=== PATIENT | male | born 1960 | race Caucasian/White ===

== ENCOUNTER 2017-10-24 16:12 | Inpatient (IN) ==
[2017-10-24 16:45] LABS: Basophils # 0.1 K/mcL (0.0-0.2); Basophils % 1.6 %; Eosinophils # 0.1 K/mcL (0.0-0.6); Eosinophils % 2.4 %; Hemoglobin 13.4 g/dL (12.9-16.9); Immature Granulocytes % 0.4 % (0-4); Lymphocytes # 0.7 K/mcL (0.6-4.6); Lymphocytes % 14.1 %; Mean Corpuscular HGB Conc 32.7 g/dL (31.6-35.5); Mean Corpuscular Volume 82.7 fL (83.0-100.0); Mean Platelet Volume 10.2 fL (9.4-12.4); Monocytes # 0.6 K/mcL (0.0-1.3); Monocytes % 11.3 %; Neutrophils # 3.6 K/mcL (1.6-8.9); Nucleated Red Blood Cells 0.4 /100 WBC (0); Platelet Count 219 K/mcL (140-400); Red Blood Count 4.96 M/mcL (4.19-5.50); Red Cell Distribution Width 14.5 % (11.5-14.5); Segmented Neutrophils % 70.2 %
[2017-10-24] MEDS ORDERED: 0.9 % Sodium Chloride 500 ML IVC ONE (17:01)
[2017-10-24 17:02] LABS: Alanine Aminotransferase 12 Units/L (7-52); Albumin 3.4 g/dL (3.5-5.7); Albumin/Globulin Ratio 1.1 (1.1-2.2); Alkaline Phosphatase 62 Units/L (34-104); Aspartate Amino Transferase 12 Units/L (13-39); BUN/Creatinine Ratio 14 (6-26); Bilirubin,Direct 0.2 mg/dL (0.0-0.2); Bilirubin,Indirect 1.1 mg/dL (0.0-1.2); Bilirubin,Total 1.3 mg/dL (0.3-1.0); Blood Urea Nitrogen 13 mg/dL (6-20); Calcium 8.2 mg/dL (8.6-10.3); Carbon Dioxide 23 mEq/L (23-29); Chloride 103 mEq/L (98-107); Glucose 151 mg/dL (70-105); Osmolality,Calculated 279 (280-300); Sodium 133 mEq/L (136-145); Total Protein 6.4 g/dL (6.4-8.9); eGFR For African Americans > 60 (> 60); eGFR For Non-African Americans > 60 (> 60)
[2017-10-24] MEDS ORDERED: Piperacillin/Tazobactam 3.375 GM in 0.9 % Sodium Chloride Mini Bag 100 ML IVPB ONE (17:04)
[2017-10-24 17:23] LABS: Bilirubin,Urine Small (Negative); Blood,Urine Small (Negative); Clarity,Urine Turbid (Clear); Color,Urine Dark Yellow (Yellow); Glucose,Urine (UA) Normal (Normal); Ketones,Urine Trace mg/dL (Negative); Leukocyte Esterase,Urine Trace (Negative); Nitrite,Urine Negative (Negative); PH,Urine 5.5 pH Units (5.0-8.0); Protein,Urine 100 mg/dL (Neg-Trace); Specific Gravity,Urine 1.029 (1.010-1.025); Urobilinogen,Urine Normal (Normal)
[2017-10-24 17:37] LABS: Hyaline Casts,Urine Few per lpf (None-Few)
[2017-10-24 17:38] LABS: Squamous Epithelial Cell,Urine Few per lpf (None-Few); WBC,Urine 0-3 per hpf (0-3)
[2017-10-24 17:39] LABS: Bacteria,Urine Few per hpf (None-Few)
[2017-10-24] MEDS: 0.9 % Sodium Chloride 1,000 ML IVC SCH ×3 (17:42→22:42)
--- NOTE | 2017-10-24 17:44 | Emergency Department Note ---
Disposition Clinical Impression: UTI (urinary tract infection) Qualifiers: Urinary tract infection type: catheter-associated UTI Indwelling urinary catheter type: indwelling urethral catheter Encounter type: initial encounter Qualified Code(s): T83.511A - Infection and inflammatory reaction due to indwelling urethral catheter, initial encounter Hypotension Qualifiers: Hypotension type: unspecified hypotension type Qualified Code(s): I95.9 - Hypotension, unspecified Disposition: Admitted As Inpatient Condition: Fair Time of Disposition: 21:02 Dizziness HPI - General Chief Complaint: ED Syncope Stated Complaint: near sycope,vomiting Time Seen by Provider: 10/24/17 16:44 Source: patient, family Limitations: no limitations - History of Present Illness HPI Narrative: Torey Guadalupe is a 57 year old male with history of CAD and CVA presenting with lightheadedness and low blood pressure (systolic 90s at home) for two hours , and nausea and dry heaving for 1 day. Patient was admitted to [facility] roughly 2 weeks ago and underwent cholecystectomy. This was followed by a week of physical therapy. He was discharged yesterday. His brother notes that the patient has continued to have poor oral intake. He measured his blood pressure earlier this morning and found it to be in the 160s/80s. Later in the day, he recheck it and found it to be in the 90s systolic with tachycardia into the 130s and the patient was experiencing lightheadedness. He does admit to some mild abdominal pain. He denies fever, chills, chest pain, diaphoresis, and changes in mental status. - Related Data Allergies Allergy/AdvReac Type Severity Reaction Status Date / Time naproxen [From Aleve] Allergy Swelling Verified 10/24/17 16:18 of Lip/Tongue/Throat Constitutional: Reports: weakness. Denies: fever, chills Cardiovascular: Denies: chest pain Respiratory: Reports: dyspnea Gastrointestinal: Reports: abdominal pain, nausea Genitourinary: Reports: other (agarwal catheter in place) Neurological: Denies: confusion Past Medical History - Past Medical History Medical history: Reports: atrial fibrillation, CVA, diabetes, GERD, hyperlipidemia, hypertension Psychiatric history: Reports: no psych history - Social History Smoking Status: Never smoker Smokeless Tobacco Status: No Alcohol use: Reports: none Drug use: Reports: none Physical Exam - General Limitations: no limitations General appearance: alert, in no apparent distress, obese - Head Head exam: atraumatic, normocephalic, normal inspection - Respiratory Respiratory exam: Present: normal lung sounds bilaterally. Absent: respiratory distress, accessory muscle use - Cardiovascular Cardiovascular exam: Present: tachycardia, normal heart sounds, +S1, +S2 - Abdominal Exam Abdominal exam: Present: soft, Non-Tender, incision (healing lap tierra). Absent : guarding, rebound - Neurological Exam Neurological exam: Present: alert, oriented X3 - Psychiatric Psychiatric exam: Present: normal affect, normal mood - Skin Skin exam: Present: warm, dry Course Course Narrative: Patient presented with low blood pressure, pre-syncope, poor oral intake, shortness of breath, and abdominal pain one day after being discharged from [facility] following a cholecystectomy. Patient tachycardic and hypotensive. CT Abd /Pelv, CXR, UA, blood cultures, lactate, lipase, CMP, and CBC ordered. Patient given one dose of vancomycin and zosyn. Patient initially improved with fluid resuscitation at 30 mls/kg with resolution of tachycardia and improvement of hypotension. Lactate, CBC, CMP, and lipase within normal limits aside from mild elevation of total bili to 1.3. CT Abd/Pelv revealed mild stranding around the bladder, possibly indicating cystitis, as well as a 3 mm nodule in the right lung base and a hypoattenuating lesion in the liver. UA was significant for turbidity and trace leukocyte esterase. Plan was initially for discharge with oral antibiotics, but when patient started sitting up, he developed worsening lightheadedness, a drop in pressure of about 10 points to below 100 systolic, and decrease in O2 saturation to below 80. This improved quickly once he returned to the supine position. This case was discussed with the admitting hospitalist. Plan is for admission for further evaluation. Vital Signs Temperature 97.9 F 10/24/17 16:14 Pulse Rate 99 10/24/17 16:14 Respiratory Rate 18 10/24/17 16:14 Blood Pressure 92/61 10/24/17 16:14 O2 Sat by Pulse Oximetry 98 10/24/17 16:14 Temperature 97.9 F 10/24/17 16:14 Pulse Rate 97 10/24/17 23:13 Respiratory Rate 18 10/24/17 23:13 Blood Pressure 97/56 10/24/17 23:13 O2 Sat by Pulse Oximetry 96 10/24/17 23:13 Oxygen Delivery Oxygen Delivery Room Air Dizziness - Medical Records Medical records reviewed: Yes I reviewed the patient's medical records. - Lab Data Lab results reviewed: Yes I reviewed the patient's lab results. Result diagrams: 10/24/17 16:30 10/24/17 16:30 Lab Results 10/24/17 10/24/17 10/24/17 Range/Units 16:30 16:30 16:30 WBC 5.1 (4.3-11.1) K/mcL RBC 4.96 (4.19-5.50) M/mcL Hgb 13.4 (12.9-16.9) g/dL Hct 41.0 (37.5-50.1) % MCV 82.7 L (83.0-100.0) fL MCH 27.0 L (28.0-33.3) pg MCHC 32.7 (31.6-35.5) g/dL RDW 14.5 (11.5-14.5) % Plt Count 219 (140-400) K/mcL MPV 10.2 (9.4-12.4) fL Immature Gran % 0.4 (0-4) % Seg Neutrophils % 70.2 % Lymphocytes % 14.1 % Monocytes % 11.3 % Eosinophils % 2.4 % Basophils % 1.6 % Neutrophils # 3.6 (1.6-8.9) K/mcL Lymphocytes # 0.7 (0.6-4.6) K/mcL Monocytes # 0.6 (0.0-1.3) K/mcL Eosinophils # 0.1 (0.0-0.6) K/mcL Basophils # 0.1 (0.0-0.2) K/mcL Nucleated RBCs/100 WBC 0.4 H (0) /100 WBC Sodium 133 L (136-145) mEq/L Potassium 4.0 (3.5-5.1) mEq/L Chloride 103 (98-107) mEq/L Carbon Dioxide 23 (23-29) mEq/L BUN 13 (6-20) mg/dL Creatinine 0.96 (0.70-1.30) mg/dL Est GFR ( Amer) > 60 (> 60) Est GFR (Non-Af Amer) > 60 (> 60) BUN/Creatinine Ratio 14 (6-26) Glucose 151 H (70-105) mg/dL Calculated Osmolality 279 L (280-300) Lactic Acid 1.0 (0.5-2.2) mmol/L Calcium 8.2 L (8.6-10.3) mg/dL Total Bilirubin 1.3 H (0.3-1.0) mg/dL Direct Bilirubin 0.2 (0.0-0.2) mg/dL Indirect Bilirubin 1.1 (0.0-1.2) mg/dL AST 12 L (13-39) Units/L ALT 12 (7-52) Units/L Alkaline Phosphatase 62 (34-104) Units/L Serum Total Protein 6.4 (6.4-8.9) g/dL Albumin 3.4 L (3.5-5.7) g/dL Globulin 3.0 (2.4-3.5) g/dL Albumin/Globulin Ratio 1.1 (1.1-2.2) Lipase (11-82) Units/L Urine Color (Yellow) Urine Clarity (Clear) Urine pH (5.0-8.0) pH Units Ur Specific [place] (1.010-1.025) Urine Protein (Neg-Trace) mg/dL Urine Glucose (UA) (Normal) mg/dL Urine Ketones (Negative) mg/dL Urine Blood (Negative) Urine Nitrite (Negative) Urine Bilirubin (Negative) Urine Urobilinogen (Normal) mg/dL Ur Leukocyte Esterase (Negative) Urine Microscopic RBC (0-3) per hpf Urine Microscopic WBC (0-3) per hpf Ur Squamous Epith Cells (None-Few) per lpf Urine Bacteria (None-Few) per hpf Hyaline Casts (None-Few) per lpf Ur Culture Indicated? (NO) Blood Type Antibody Screen 10/24/17 10/24/17 10/24/17 Range/Units 16:30 17:08 17:58 WBC (4.3-11.1) K/mcL RBC (4.19-5.50) M/mcL Hgb (12.9-16.9) g/dL Hct (37.5-50.1) % MCV (83.0-100.0) fL MCH (28.0-33.3) pg MCHC (31.6-35.5) g/dL RDW (11.5-14.5) % Plt Count (140-400) K/mcL MPV (9.4-12.4) fL Immature Gran % (0-4) % Seg Neutrophils % % Lymphocytes % % Monocytes % % Eosinophils % % Basophils % % Neutrophils # (1.6-8.9) K/mcL Lymphocytes # (0.6-4.6) K/mcL Monocytes # (0.0-1.3) K/mcL Eosinophils # (0.0-0.6) K/mcL Basophils # (0.0-0.2) K/mcL Nucleated RBCs/100 WBC (0) /100 WBC Sodium (136-145) mEq/L Potassium (3.5-5.1) mEq/L Chloride (98-107) mEq/L Carbon Dioxide (23-29) mEq/L BUN (6-20) mg/dL Creatinine (0.70-1.30) mg/dL Est GFR ( Amer) (> 60) Est GFR (Non-Af Amer) (> 60) BUN/Creatinine Ratio (6-26) Glucose (70-105) mg/dL Calculated Osmolality (280-300) Lactic Acid (0.5-2.2) mmol/L Calcium (8.6-10.3) mg/dL Total Bilirubin (0.3-1.0) mg/dL Direct Bilirubin (0.0-0.2) mg/dL Indirect Bilirubin (0.0-1.2) mg/dL AST (13-39) Units/L ALT (7-52) Units/L Alkaline Phosphatase (34-104) Units/L Serum Total Protein (6.4-8.9) g/dL Albumin (3.5-5.7) g/dL Globulin (2.4-3.5) g/dL Albumin/Globulin Ratio (1.1-2.2) Lipase 19 (11-82) Units/L Urine Color Dark Yellow (Yellow) Urine Clarity Turbid A (Clear) Urine pH 5.5 (5.0-8.0) pH Units Ur Specific [place] 1.029 H (1.010-1.025) Urine Protein 100 H (Neg-Trace) mg/dL Urine Glucose (UA) Normal (Normal) mg/dL Urine Ketones Trace H (Negative) mg/dL Urine Blood Small H (Negative) Urine Nitrite Negative (Negative) Urine Bilirubin Small H (Negative) Urine Urobilinogen Normal (Normal) mg/dL Ur Leukocyte Esterase Trace H (Negative) Urine Microscopic RBC 3-5 H (0-3) per hpf Urine Microscopic WBC 0-3 (0-3) per hpf Ur Squamous Epith Cells Few (None-Few) per lpf Urine Bacteria Few (None-Few) per hpf Hyaline Casts Few (None-Few) per lpf Ur Culture Indicated? YES A (NO) Blood Type B NEGATIVE Antibody Screen NEGATIVE - Radiology Data Radiology results reviewed: Yes I reviewed the patient's radiology results. Abdomen/Pelvis CT 10/24/17 16:49 IMPRESSION: 1. Mild wall thickening of the ascending colon near the hepatic flexure which is nonspecific and may be related to reactive changes from recent cholecystectomy. Colitis could also be a possibility. 2. Moderate amount of stool in the colon predominately within the rectum. 3. Focal soft tissue stranding and fluid within the right upper quadrant omentum and extending into the subcutaneous soft tissues anteriorly, likely related to recent cholecystectomy and postoperative change. 4. Indeterminate 1.8 x 1.6 cm hypoenhancing liver lesion adjacent to the gallbladder fossa. Recommend further evaluation with liver MRI. 5. Indeterminate 3 mm solid pulmonary nodule in the right middle lobe. Findings can be followed per Fleischner society guidelines. 6. Status post cholecystectomy. No fluid collection within the surgical bed. 7. Although the bladder is decompressed with a Agarwal catheter, there is perivesicular stranding. Recommend correlation with urinalysis. RECOMMENDATIONS: Guidelines for follow-up and management of pulmonary nodules found on abdomen CT: <6 mm - No follow up recommend on the basis of the estimated low risk of malignancy. 6-8-mm - recommend follow-up chest CT after an appropriate interval (3-12 months depending on clinical risk). >8mm - immediate chest CT for further evaluation. Radiology 2017 [email or web address]://pubs.rsna.org/doi/full/[email or web address] D/ / 10/24/2017 17:48:31 Yanira Garcia MD / ofelia Interpreting Provider: Yanira Garcia MD Chest X-Ray 10/24/17 16:53 IMPRESSION: No acute process. D/ / Hemanth Griffin MD / Hemanth Griffin MD Interpreting Provider: Hemanth Griffin MD - EKG Data EKG attestation: Yes I reviewed and interpreted this EKG. EKG results narrative: Rate 101 RI Int 178 QRS 85 QT/QTc 335/393 EKG shows normal: sinus rhythm Rate: tachycardia S.B.A.R. - S.B.A.R. Situation: Demographics, MOA Background: Presenting Complaint Assessment: Vital Signs, Course and respsone to treatment, Exam Concerns, Pertinant Lab Results S.B.A.R. Report Given to: Dr. Filiberto Guadalupe Repor Time: 23:00 Attestation Statement - Attestation Attestation: I examined this patient and my medical decision-making was reviewed with the Resident Physician. I agree with the documented findings, disposition and treatment plan as described except to the extent set forth below. Findings consistent with urinary tract infection, hypotension, weakness. Plan to obtain cultures, start empiric antibiotics to meet Sirs guidelines. Also recommending MRI as an outpatient to further evaluate liver lesion. The patient will be admitted for further evaluation of weakness, lightheadedness with attempts at ambulation. Patient responded to IV fluids but still feels weak and dizzy. He will be evaluated for treatment of UTI.
[2017-10-24] MEDS ORDERED: 0.9 % Sodium Chloride 1,000 ML ONE (22:38)
[2017-10-24] MEDS ORDERED: Naloxone 0.4 MG/ML INJ IVP PRN (23:57)
[2017-10-25] MEDS ORDERED: *HR* Dextrose 50 % in Water (Syg) 50 ML SYRINGE IVP PRN (00:03)
[2017-10-25] MEDS ORDERED: D5% in Water 1,000 ML IVC PRN (00:03)
[2017-10-25] MEDS ORDERED: Dextrose Gel 15 GM/37.5 ML TUBE PO PRN (00:03)
--- NOTE | 2017-10-25 00:17 | Internal Med History&Physical ---
<Yair Caldera Deric - Last Filed: 10/25/17 00:09> Date of Encounter: 10/25/17 Time of Encounter: 23:10 Assessment and Plan (1) UTI (urinary tract infection) Current visit: Yes Status: Acute UA concerning for infection. Culture pending. Indwelling urinary catheter in place since CVA in August Pt has hypotension, but does not meet other SIRS criteria at this time: No fever , no tachypnea, and no leukocytosis Blood cultures collected in ED Received one dose of Vanc in ED - will not continue Continue Zosyn and deescalate as able Qualifiers: Urinary tract infection type: catheter-associated UTI Indwelling urinary catheter type: indwelling urethral catheter Encounter type: initial encounter Qualified Code(s): T83.511A - Infection and inflammatory reaction due to indwelling urethral catheter, initial encounter; N39.0 - Urinary tract infection , site not specified; N39.0 - Urinary tract infection, site not specified (2) Hypotension Current visit: Yes Status: Acute Systolic BP in 90's and symptomatic with light-headedness Patient was to be discharged from ED, but he became more hypotensive, hypoxic (< 80% O2 sat), and increasing light-headed upon sitting up - Symptoms resolved upon laying supine again No anemia, No ECG changes Etiology likely related to UTI, possible colitis - continue antibiotics Continue IV fluids. Hx of hypertension - will hold any BP meds Qualifiers: Hypotension type: unspecified hypotension type Qualified Code(s): I95.9 - Hypotension, unspecified (3) Liver mass Current visit: Yes Status: Acute CT abd/pelvis mentions: Indeterminate 1.8 x 1.6 cm hypoenhancing liver lesion adjacent to the gallbladder fossa. Recommend further evaluation with liver MRI. Haptic enzymes normal. Lipase normal. Mild hyperbilirubinemia at 1.3 Will order MRI for further evaluation (4) Colitis Current visit: Yes Status: Acute CT abd/pelvis shows Mild wall thickening of the ascending colon near the hepatic flexure which is nonspecific and may be related to reactive changes from recent cholecystectomy or colitis. Patient does report some non-watery, non-bloody diarrhea Already on broad-spectrum antibiotics for UTI (5) History of cerebrovascular accident (CVA) with residual deficit Current visit: Yes Status: Acute Residual right upper and lower extremity weakness PT/Ot consult when patient is more stable (6) CAD (coronary artery disease), [place] coronary artery Current visit: Yes Status: Acute Reports 2 stents placed in January 2017 - will continue ASA and Plavix Patient denies any current or recent chest pain Qualifiers: [place] vs. transplanted heart: [place] heart Associated angina: angina presence unspecified Qualified Code(s): I25.10 - Atherosclerotic heart disease of [place] coronary artery without angina pectoris (7) Paroxysmal atrial fibrillation Current visit: Yes Status: Acute Currently NSR and rate controlled. Highest HR since presentation has been 100 Pt is unsure if he takes anticoagulation medications - his brother will bring a list of home meds in the morning (8) Diabetes mellitus Current visit: Yes Status: Acute Low dose SSI and accuchecks Qualifiers: Diabetes mellitus type: type 2 Diabetes mellitus [facility]p insulin use: without termite treater use Diabetes mellitus complication status: with unspecified complications Qualified Code(s): E11.8 - Type 2 diabetes mellitus with unspecified complications (9) DVT prophylaxis Current visit: Yes Status: Acute Subq heparin Internal Medicine - H&P: HPI Chief complaint: Light-headed, low BP Admitted From: Emergency Dept History of present illness: Mr. Guadalupe is a 57 year old male with PMH of CAD s/p 2 stents in January 2017, CVA in August 2017 with residual right arm/leg weakness, A. fib, DM, and HTN, presented to the ED with a 2 hour history of light-headedness and low BP ( systolic in 90's). He states that at home he was also tachycardic with HR in 130 's. He reports that this morning his BP was normal. Associated symptoms include poor appetite, dyspnea, dry cough, nausea and dry heaves x1 day, mild, diffuse abdominal pain, and non-watery diarrhea. He was just discharged from [facility] yesterday after being in the hospital for one week after a cholecystectomy. He denies fevers, chills, syncope, falls, chest pain, vomiting , hematochezia, melena, constipation, hematuria, or leg pain/swelling. He has an indwelling urinary catheter in place since his stroke in August. Past Med Surg Social Fam HX - Past Medical History Medical history: atrial fibrillation, CVA, diabetes, GERD, hyperlipidemia, hypertension Psychiatric history: no psych history - Social History Smoking Status: Never smoker Smokeless Tobacco Status: No Alcohol use: none Drug use: none Internal Medicine - H&P: Meds 3 Allergy/AdvReac Type Severity Reaction Status Date / Time naproxen [From Aleve] Allergy Swelling Verified 10/24/17 16:18 of Lip/Tongue/Throat All Systems PM: A 10-system review of systems was performed and is negative for pertinent findings except as documented above in the HPI. - Constitutional Vitals: Temp Pulse Resp BP Pulse Ox 97.9 F 97 18 117/68 96 10/24/17 16:14 10/24/17 23:13 10/25/17 00:00 10/25/17 00:00 10/24/17 23:13 General appearance: Present: A&O X 3, no acute distress, answers questions appropriately - Head Head exam: Present: atraumatic, normocephalic - Eye Eye exam: Present: EOMI, conjuntiva pink, sclera anicteric - Neck Neck exam general surgery: Present: supple, trachea midline. Absent: lymphadenopathy - Respiratory Respiratory exam: Present: CTAB. Absent: accessory muscle use, rales, rhonchi, wheezes - Cardiovascular Cardiovascular exam: Present: RRR, +S1, +S2. Absent: diastolic murmur, systolic murmur - GI/Abdominal GI/Abdominal exam: Present: normal bowel sounds, soft, no peritoneal signs. Absent: distended, guarding, rebound, rigid, tenderness Additional comments: Incision healing, clean, dry, and intact (lap tierra) - Extremities Exam Extremities exam: Present: warm, radial pulses palpable and symmetrical. Absent : calf tenderness, cyanotic, pedal edema - Neurological Exam Neurological exam: Present: alert, oriented X3. Absent: no focal deficits ( right upper and lower extremity weakness - unchanged according to patient), facial droop, speech deficit - Skin Skin exam: Present: dry, intact Internal Med - H&P Results - Labs CBC & Chem 7: 10/24/17 16:30 10/24/17 16:30 <Rosetta De Los Santos - Last Filed: 10/25/17 01:13> Date of Encounter: 10/25/17 Internal Medicine - H&P: HPI History of present illness: Mr. Guadalupe is a 57 year old male All Systems PM: A 10-system review of systems was performed and is negative for pertinent findings except as documented above in the HPI. - Constitutional Vitals: Temp Pulse Resp BP Pulse Ox 98.9 F 97 18 107/68 97 10/25/17 00:33 10/25/17 00:33 10/25/17 00:33 10/25/17 00:33 10/25/17 00:33 Internal Med - H&P Results - Labs CBC & Chem 7: 10/24/17 16:30 10/24/17 16:30 - Attending Attestation I have seen and examined this patient independently. I have discussed with resident physician Dr. Caldera regarding the management plan. Agree with the documentation.
[2017-10-25] MEDS: 0.9 % Sodium Chloride 1,000 ML IVC SCH ×2 (00:39→15:01)
[2017-10-25 05:50] LABS: Basophils # 0.1 K/mcL (0.0-0.2); Basophils % 1.2 %; Eosinophils # 0.1 K/mcL (0.0-0.6); Eosinophils % 1.2 %; Hematocrit 35.7 % (37.5-50.1); Immature Granulocytes % 0.5 % (0-4); Lymphocytes # 0.8 K/mcL (0.6-4.6); Lymphocytes % 19.7 %; Mean Corpuscular HGB Conc 32.2 g/dL (31.6-35.5); Mean Corpuscular Hemoglobin 26.7 pg (28.0-33.3); Mean Platelet Volume 10.7 fL (9.4-12.4); Monocytes # 0.5 K/mcL (0.0-1.3); Monocytes % 12.3 %; Neutrophils # 2.6 K/mcL (1.6-8.9); Platelet Count 176 K/mcL (140-400); Red Cell Distribution Width 14.6 % (11.5-14.5); Segmented Neutrophils % 65.1 %
[2017-10-25 05:52] LABS: Hemoglobin 11.5 g/dL (12.9-16.9)
[2017-10-25 05:55] LABS: INR 1.1; Prothrombin Time 12.1 Seconds (9.4-12.1)
[2017-10-25 05:58] LABS: Activated Partial Thrombo Time 27.5 Seconds (26.0-36.0)
[2017-10-25] MEDS ORDERED: Piperacillin/Tazobactam 3.375 GM in 0.9 % Sodium Chloride Mini Bag 100 ML IVPB SCH (06:00)
[2017-10-25] MEDS: *HR* Heparin 5,000 UNIT/ML VIAL SQ SCH ×3 (06:01→21:33)
[2017-10-25 06:06] LABS: Alanine Aminotransferase 11 Units/L (7-52); Albumin 3.4 g/dL (3.5-5.7); Albumin/Globulin Ratio 1.4 (1.1-2.2); Alkaline Phosphatase 56 Units/L (34-104); Aspartate Amino Transferase 11 Units/L (13-39); BUN/Creatinine Ratio 14 (6-26); Blood Urea Nitrogen 12 mg/dL (6-20); Carbon Dioxide 19 mEq/L (23-29); Chloride 107 mEq/L (98-107); Globulin 2.4 g/dL (2.4-3.5); Glucose 76 mg/dL (70-105); Osmolality,Calculated 275 (280-300); Potassium 3.6 mEq/L (3.5-5.1); Sodium 133 mEq/L (136-145); Total Protein 5.8 g/dL (6.4-8.9); eGFR For African Americans > 60 (> 60); eGFR For Non-African Americans > 60 (> 60)
[2017-10-25] MEDS: Insulin LISPRO 300 UNITS/3 ML VIAL SQ SCH ×4 (09:18→21:32)
[2017-10-25] MEDS: Aspirin 81 MG TAB.CHEW PO SCH (09:20)
[2017-10-25] MEDS: Dextrose Gel 15 GM/37.5 ML TUBE PO PRN ×2 (12:13→15:06)
--- NOTE | 2017-10-25 12:14 | Internal Med Progress Note ---
Date of Encounter: 10/25/17 Time of Encounter: 12:11 - Assessment and plan (1) UTI (urinary tract infection) Current Visit: Yes Status: Acute Assessment and plan: Continue Zosyn for now. Follow up on cultures. Has a chronic Yañez. Qualifiers: Urinary tract infection type: catheter-associated UTI Indwelling urinary catheter type: indwelling urethral catheter Encounter type: initial encounter Qualified Code(s): T83.511A - Infection and inflammatory reaction due to indwelling urethral catheter, initial encounter; N39.0 - Urinary tract infection , site not specified; N39.0 - Urinary tract infection, site not specified (2) Liver mass Current Visit: Yes Status: Acute Assessment and plan: An MRI liver protocol has been ordered. There was a 1.8 x 1.6 cm hypo- enhancing liver lesion adjacent to the gallbladder fossa. The patient recently had a cholecystectomy. (3) Colitis Current Visit: Yes Status: Acute Assessment and plan: Continue Zosyn for now. Check GI panel. Rule out C. difficile. (4) Paroxysmal atrial fibrillation Current Visit: Yes Status: Acute Assessment and plan: Currently rate controlled.. Unsure if he is on anticoagulation. Pharmacy to confirm. INR 1.1. (5) CAD (coronary artery disease), [place] coronary artery Current Visit: Yes Status: Acute Assessment and plan: Has 2 prior stents. Continue aspirin, Plavix, statin. Resume rest of home medications once they are confirmed. The patient may possibly be also on Imdur and lisinopril. Qualifiers: [place] vs. transplanted heart: [place] heart Associated angina: angina presence unspecified Qualified Code(s): I25.10 - Atherosclerotic heart disease of [place] coronary artery without angina pectoris (6) Diabetes mellitus Current Visit: Yes Status: Acute Assessment and plan: Continue insulin sliding scale. Continue Accu-Cheks. Qualifiers: Diabetes mellitus type: type 2 Diabetes mellitus nursing home insulin use: without nursing home use Diabetes mellitus complication status: with unspecified complications Qualified Code(s): E11.8 - Type 2 diabetes mellitus with unspecified complications (7) History of cerebrovascular accident (CVA) with residual deficit Current Visit: Yes Status: Acute Assessment and plan: Continue antiplatelets and statin. (8) DVT prophylaxis Current Visit: Yes Status: Acute Assessment and plan: Heparin subcutaneous (9) Urinary retention Current Visit: Yes Status: Acute Assessment and plan: She has a chronic Yañez in since his stroke back in August 2016. The brother tells me that the patient was supposed to be seeing a urologist with [facility] sometime over the last couple weeks however this ended up being canceled as the patient ended up admitted to [facility] for cholecystectomy. We will see if we can possibly get urology to see the patient later and his stay here. We can remove the Yañez today through voiding trials.. - Subjective Interval history: Patient was seen and examined. Afebrile. Blood pressure is better. No longer hypotensive. Admitted yesterday with weakness hypotension and tachycardia. Being treated for urinary tract infection. Found to have colitis on a CT abdomen and pelvis. There was a report of a liver lesion as well for which an MRI liver protocol has been ordered. The patient has a chronic Yañez in since his stroke back in August of this year. The stroke has left him with residual left-sided upper and lower extremity weakness. - Constitutional Vitals: Temp Pulse Resp BP Pulse Ox 98.6 F 86 16 142/84 96 10/25/17 11:10 10/25/17 11:10 10/25/17 11:10 10/25/17 11:10 10/25/17 11:10 General appearance: Present: A&O X 3, no acute distress, answers questions appropriately Exam: GEN: NAD CVS: RRR. S1, S2, No m/r/g RESP: CTAB ABD: Soft, NT, ND, +BS EXT: No edema. 2+ DP. No rashes NEURO: Nonfocal Internal Medicine: Result - Labs CBC & Chem 7: 10/25/17 04:43 10/25/17 04:43 Labs: Short CBC 10/25/17 Range/Units 04:43 WBC 4.1 L (4.3-11.1) K/mcL Hgb 11.5 L D (12.9-16.9) g/dL Hct 35.7 L (37.5-50.1) % Plt Count 176 (140-400) K/mcL Neutrophils # 2.6 (1.6-8.9) K/mcL BMP 10/25/17 04:43 Sodium 133 L Potassium 3.6 Chloride 107 Carbon Dioxide 19 L BUN 12 Creatinine 0.86 Glucose 76 Calcium 8.0 L Liver Function 10/25/17 Range/Units 04:43 Total Bilirubin 1.0 (0.3-1.0) mg/dL AST 11 L (13-39) Units/L ALT 11 (7-52) Units/L Alkaline Phosphatase 56 (34-104) Units/L Albumin 3.4 L (3.5-5.7) g/dL - ABG Interpretation ABG results: PT/INR, D-dimer PT 12.1 Seconds (9.4-12.1) 10/25/17 04:43 Consult Discharge Plan - Plan Referrals: Juanita Valente, [facility] [Primary Care Provider] -
[2017-10-25] MEDS: Piperacillin/Tazobactam 3.375 GM in 0.9 % Sodium Chloride Mini Bag 100 ML IVPB SCH (15:02)
[2017-10-25] MEDS: Ondansetron 4 MG/2 ML VIAL IVP PRN (16:21)
--- NOTE | 2017-10-25 19:58 | Electrocardiograph Report ---
[place] [id number] Test Date: 2017-10-24 Pat Name: Torey Guadalupe Department: 104 Room: 2A37 Gender: M Transition Specialist: : 1960 Requested By: Lola Santiago Order Number: [id number] Reading MD: Dipak Hopkins MD Measurements Intervals [place] Rate: 101 P: 39 UT: 178 QRS: -35 QRSD: 85 T: 71 QT: 335 QTc: 393 Interpretive Statements SINUS TACHYCARDIA MARKED LEFT AXIS DEVIATION Poor R wave progression Electronically Signed On 10-25-2017 19:57:34 EDT by Dipak Hopkins MD
[2017-10-26] MEDS: Piperacillin/Tazobactam 3.375 GM in 0.9 % Sodium Chloride Mini Bag 100 ML IVPB SCH ×4 (00:59→23:08)
[2017-10-26] MEDS: Acetaminophen 325 MG TABLET PO PRN ×2 (00:59→13:58)
[2017-10-26] MEDS: Ondansetron 4 MG/2 ML VIAL IVP PRN (01:05)
[2017-10-26 05:49] LABS: Basophils % 0.3 %; Eosinophils % 0.6 %; Hematocrit 36.8 % (37.5-50.1); Immature Granulocytes % 0.3 % (0-4); Lymphocytes # 0.8 K/mcL (0.6-4.6); Lymphocytes % 24.7 %; Mean Corpuscular HGB Conc 32.6 g/dL (31.6-35.5); Mean Corpuscular Volume 82.9 fL (83.0-100.0); Monocytes # 0.5 K/mcL (0.0-1.3); Monocytes % 13.9 %; Platelet Count 148 K/mcL (140-400); Red Blood Count 4.44 M/mcL (4.19-5.50); Red Cell Distribution Width 14.3 % (11.5-14.5); Segmented Neutrophils % 60.2 %
[2017-10-26] MEDS: *HR* Heparin 5,000 UNIT/ML VIAL SQ SCH ×3 (07:02→23:08)
[2017-10-26 07:26] LABS: BUN/Creatinine Ratio 8 (6-26); Blood Urea Nitrogen 7 mg/dL (6-20); Calcium 7.9 mg/dL (8.6-10.3); Carbon Dioxide 20 mEq/L (23-29); Chloride 105 mEq/L (98-107); Glucose 82 mg/dL (70-105); Magnesium 1.7 mg/dL (1.6-2.6); Osmolality,Calculated 267 (280-300); Potassium 3.6 mEq/L (3.5-5.1); Sodium 130 mEq/L (136-145); eGFR For African Americans > 60 (> 60); eGFR For Non-African Americans > 60 (> 60)
[2017-10-26] MEDS: Insulin LISPRO 300 UNITS/3 ML VIAL SQ SCH ×4 (08:34→20:11)
[2017-10-26] MEDS: Aspirin 81 MG TAB.CHEW PO SCH (08:41)
[2017-10-26] MEDS ORDERED: Magnesium Oxide 400 MG TABLET PO ONE (11:32)
--- NOTE | 2017-10-26 11:48 | Internal Med Progress Note ---
Date of Encounter: 10/26/17 Time of Encounter: 11:41 - Assessment and plan (1) UTI (urinary tract infection) Current Visit: Yes Status: Acute Assessment and plan: Continue Zosyn for now. Follow up on cultures. Has a chronic Yañez. Qualifiers: Urinary tract infection type: catheter-associated UTI Indwelling urinary catheter type: indwelling urethral catheter Encounter type: initial encounter Qualified Code(s): T83.511A - Infection and inflammatory reaction due to indwelling urethral catheter, initial encounter; N39.0 - Urinary tract infection , site not specified; N39.0 - Urinary tract infection, site not specified (2) Liver mass Current Visit: Yes Status: Acute Assessment and plan: An MRI liver protocol done and showed complex cystic lesion near the gallbladder fossa which had features suggestive of internal blood products or proteinaceous material. The recommendation is to have repeat CT if symptoms persist. For now we will have him follow-up with the surgeons and repeat a CT needed outpatient. The patient has no symptoms in that. There was a 1.8 x 1.6 cm hypo-enhancing liver lesion adjacent to the gallbladder fossa on his CT abdomen and pelvis.. The patient recently had a cholecystectomy. (3) Colitis Current Visit: Yes Status: Acute Assessment and plan: Continue Zosyn for now. Check GI panel. Rule out C. difficile. (4) Paroxysmal atrial fibrillation Current Visit: Yes Status: Acute Assessment and plan: Currently rate controlled.. Unsure if he is on anticoagulation. Pharmacy to confirm. INR 1.1. (5) CAD (coronary artery disease), [place] coronary artery Current Visit: Yes Status: Acute Assessment and plan: Has 2 prior stents. Continue aspirin, Plavix, statin. Resume rest of home medications once they are confirmed. The patient may possibly be also on Imdur and lisinopril. Qualifiers: [place] vs. transplanted heart: [place] heart Associated angina: angina presence unspecified Qualified Code(s): I25.10 - Atherosclerotic heart disease of [place] coronary artery without angina pectoris (6) Diabetes mellitus Current Visit: Yes Status: Acute Assessment and plan: Continue insulin sliding scale. Continue Accu-Cheks. Qualifiers: Diabetes mellitus type: type 2 Diabetes mellitus [facility] insulin use: without [facility] use Diabetes mellitus complication status: with unspecified complications Qualified Code(s): E11.8 - Type 2 diabetes mellitus with unspecified complications (7) History of cerebrovascular accident (CVA) with residual deficit Current Visit: Yes Status: Acute Assessment and plan: Continue antiplatelets and statin. (8) Urinary retention Current Visit: Yes Status: Acute Assessment and plan: He has a chronic Yañez in since his stroke back in August 2016. He was going see Dr. Siddiqui in office over the last couple days but ended up hospitalized here. Failed voiding trials yesterday and a Yañez was placed back in. Spoke to Dr. Siddiqui about the patient and he will either see the patient himself or pass on the patient to another urologist. (9) DVT prophylaxis Current Visit: Yes Status: Acute Assessment and plan: Heparin subcutaneous - Subjective Interval history: Patient was seen and examined. Afebrile. Blood pressure is better now. Yesterday we removed his Yañez however he continued to have issues with urinary retention and a Yañez was placed back in. Admitted with weakness, hypotension, and tachycardia. Being treated for urinary tract infection. Found to have colitis on a CT abdomen and pelvis. He has loose stools still. Watery. Afebrile. There was a report of a liver lesion as well for which an MRI liver protocol has been ordered and he underwent that yesterday. The patient has a chronic Yañez in since his stroke back in August of this year. The stroke has left him with residual left-sided upper and lower extremity weakness. - Constitutional Vitals: Temp Pulse Resp BP Pulse Ox 99.6 F 76 16 137/87 97 10/26/17 10:42 10/26/17 10:42 10/26/17 10:42 10/26/17 10:42 10/26/17 10:42 General appearance: Present: A&O X 3, no acute distress, answers questions appropriately Exam: GEN: NAD CVS: RRR. S1, S2, No m/r/g RESP: CTAB ABD: Soft, NT, ND, +BS EXT: No edema. 2+ DP. No rashes NEURO: Strength is about 4 out of 5 in the right upper right lower extremity compared to the left upper and lower extremities Internal Medicine: Result - Labs CBC & Chem 7: 10/26/17 05:32 10/26/17 06:52 Labs: Short CBC 10/26/17 Range/Units 05:32 WBC 3.3 L (4.3-11.1) K/mcL Hgb 12.0 L (12.9-16.9) g/dL Hct 36.8 L (37.5-50.1) % Plt Count 148 (140-400) K/mcL Neutrophils # 2.0 (1.6-8.9) K/mcL BMP 10/26/17 06:52 Sodium 130 L Potassium 3.6 Chloride 105 Carbon Dioxide 20 L BUN 7 Creatinine 0.90 Glucose 82 Calcium 7.9 L - ABG Interpretation ABG results: PT/INR, D-dimer PT 12.1 Seconds (9.4-12.1) 10/25/17 04:43 - Impressions Impressions Abdomen MRI 10/25/17 00:35 IMPRESSION: 1. Complex cystic lesion near the gallbladder fossa is noted with features suggestive of internal blood products or proteinaceous material. This may represent an incidental benign finding. An acute inflammatory process or abscess should also be considered given recent cholecystectomy. Follow-up with CT may be warranted if symptoms persist or there is concern for an inflammatory process. 2. Diffuse signal abnormality in the liver is noted, raising the possibility of iron deposition. 3. Status post cholecystectomy with likely postoperative changes noted in the right upper quadrant peritoneal cavity. D/ / Toñito Lester / Toñito Lester Interpreting Provider: Toñito Lester Consult Discharge Plan - Plan Referrals: Juanita Valente, COFOUNDER [Primary Care Provider] -
--- NOTE | 2017-10-26 15:10 | Urology - Consult Note ---
Date of Encounter: 10/26/17 Time of Encounter: 15:08 - Assessment and Plan (1) UTI (urinary tract infection) Current Visit: Yes Status: Acute Assessment and plan: ucx neg. doubt this was cause of low BP Qualifiers: Urinary tract infection type: catheter-associated UTI Indwelling urinary catheter type: indwelling urethral catheter Encounter type: initial encounter Qualified Code(s): T83.511A - Infection and inflammatory reaction due to indwelling urethral catheter, initial encounter; N39.0 - Urinary tract infection , site not specified; N39.0 - Urinary tract infection, site not specified (2) Urinary retention Current Visit: Yes Status: Acute Assessment and plan: Patient will need to continue with his urethral catheter at this time. Patient will be scheduled November 06 at 8 AM for voiding trial Urology CN:[email or web address] Consult date: 10/26/17 Reason for consult Urology: Other (urinary retention) Requesting physician: Yair Caldera History of present illness: Torey is a 57 y/o male with a history of recent admission to the hospital secondary to dizziness and low blood pressure. Patient has had an indwelling urethral catheter ever since a stroke in August 2017. Patient states that prior to the stroke he was voiding without difficulties. Patient states that he has had some recovery from his stroke and is able to ambulate as well as has had approximately 75% of return of his strength on his right side. Past Med Surg Social Fam HX - Past Medical History Medical history: atrial fibrillation, CVA, diabetes, GERD, hyperlipidemia, hypertension Psychiatric history: no psych history - Past Surgical History Surgical History: cholecystectomy - Social History Smoking Status: Never smoker Smokeless Tobacco Status: No Alcohol use: none Drug use: none - Family History Mother Family Member Ethnicity: Non- Living Status: Cause of : Renal failure Father Family Member Ethnicity: Non- Living Status: Cause of : Hypoglycemic episode Hx Family Endocrine Disorder: Yes (Diabetic) Medications and Allergies Atorvastatin Calcium [Lipitor] 80 mg PO HS 10/25/17 [History] Clopidogrel [Plavix] 75 mg PO DAILY 10/25/17 [History] Glimepiride [Amaryl] 8 mg PO DAILY 10/25/17 [History] Insulin Glargine,Hum.rec.anlog [Basaglar Kwikpen U-100] 10 unit SQ HS 10/25/17 [ History] Isosorbide MONOnitrate (24 HR) [Imdur] 30 mg PO DAILY 10/25/17 [History] Lisinopril [Zestril] 10 mg PO DAILY 10/25/17 [History] Metformin HCl [Glucophage] 1,000 mg PO BID 10/25/17 [History] Pantoprazole Sodium [Protonix] 40 mg PO DAILY 10/25/17 [History] Tamsulosin [Flomax] 0.4 mg PO DAILY 10/25/17 [History] 3 Allergy/AdvReac Type Severity Reaction Status Date / Time naproxen [From Aleve] Allergy Swelling Verified 10/24/17 16:18 of Lip/Tongue/Throat Review of Systems - Constitutional fever(s), no chills - EENT Nose, mouth and throat: no dizziness - Cardiovascular no chest pain - Respiratory no cough, no dyspnea - Gastrointestinal no abdominal pain - Genitourinary as per HPI - Musculoskeletal muscle weakness, no back pain - Integumentary no erythema Exam Initial Vital Signs Temp Pulse Resp BP Pulse Ox 97.9 F 99 18 92/61 98 10/24/17 16:14 10/24/17 16:14 10/24/17 16:14 10/24/17 16:14 10/24/17 16:14 - General physical appearance Present: well developed, well nourished, no distress - Eyes Present: PERRL. Absent: icteric - ENT Present: normal nares, normal mucosa - Neck Present: no masses, no lymphadenopathy - Respiratory Present: normal respiratory effort - Cardiovascular Cardiovascular exam IM: JVD (no JVD), RRR - Abdomen Abdomen: Present: soft, bowel sounds (good). 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) Urology Results - Labs 10/26/17 05:32 10/26/17 06:52 Abnormal lab results WBC 3.3 K/mcL (4.3-11.1) L 10/26/17 05:32 Hgb 12.0 g/dL (12.9-16.9) L 10/26/17 05:32 Hct 36.8 % (37.5-50.1) L 10/26/17 05:32 MCV 82.9 fL (83.0-100.0) L 10/26/17 05:32 MCH 27.0 pg (28.0-33.3) L 10/26/17 05:32 Nucleated RBCs/100 WBC 0.4 /100 WBC (0) H 10/24/17 16:30 Sodium 130 mEq/L (136-145) L 10/26/17 06:52 Carbon Dioxide 20 mEq/L (23-29) L 10/26/17 06:52 Calculated Osmolality 267 (280-300) L 10/26/17 06:52 Calcium 7.9 mg/dL (8.6-10.3) L 10/26/17 06:52 AST 11 Units/L (13-39) L 10/25/17 04:43 Serum Total Protein 5.8 g/dL (6.4-8.9) L 10/25/17 04:43 Albumin 3.4 g/dL (3.5-5.7) L 10/25/17 04:43 Urine Clarity Turbid (Clear) A 10/24/17 17:08 Ur Specific [place] 1.029 (1.010-1.025) H 10/24/17 17:08 Urine Protein 100 mg/dL (Neg-Trace) H 10/24/17 17:08 Urine Ketones Trace mg/dL (Negative) H 10/24/17 17:08 Urine Blood Small (Negative) H 10/24/17 17:08 Urine Bilirubin Small (Negative) H 10/24/17 17:08 Ur Leukocyte Esterase Trace (Negative) H 10/24/17 17:08 Urine Microscopic RBC 3-5 per hpf (0-3) H 10/24/17 17:08 Ur Culture Indicated? YES (NO) A 10/24/17 17:08 Diabetes panel 10/26/17 Range/Units 06:52 Sodium 130 L (136-145) mEq/L Potassium 3.6 (3.5-5.1) mEq/L Chloride 105 (98-107) mEq/L Carbon Dioxide 20 L (23-29) mEq/L BUN 7 (6-20) mg/dL Creatinine 0.90 (0.70-1.30) mg/dL Glucose 82 (70-105) mg/dL Calcium 7.9 L (8.6-10.3) mg/dL Calcium panel 10/26/17 Range/Units 06:52 Calcium 7.9 L (8.6-10.3) mg/dL Pituitary panel 10/26/17 Range/Units 06:52 Sodium 130 L (136-145) mEq/L Potassium 3.6 (3.5-5.1) mEq/L Chloride 105 (98-107) mEq/L Carbon Dioxide 20 L (23-29) mEq/L BUN 7 (6-20) mg/dL Creatinine 0.90 (0.70-1.30) mg/dL Glucose 82 (70-105) mg/dL Calcium 7.9 L (8.6-10.3) mg/dL Adrenal panel 10/26/17 Range/Units 06:52 Sodium 130 L (136-145) mEq/L Potassium 3.6 (3.5-5.1) mEq/L Chloride 105 (98-107) mEq/L Carbon Dioxide 20 L (23-29) mEq/L BUN 7 (6-20) mg/dL Creatinine 0.90 (0.70-1.30) mg/dL Glucose 82 (70-105) mg/dL Calcium 7.9 L (8.6-10.3) mg/dL All other labs normal. - Imaging CT scan - abdomen: image reviewed CT scan - pelvis: image reviewed Consult Discharge Plan - Plan Referrals: Juanita Valente, STEVE [Primary Care Provider] -
--- NOTE | 2017-10-26 16:54 | Event Note ---
Date of Encounter: 10/26/17 Time of Encounter: 16:52 Patient states feeling numb from the waist down bilaterally that started about 5 minutes ago. I went to examine the patient. He does have a history of a CVA back in August which left him with significant weakness in the right upper and lower extremities. On examination the patient is alert and oriented 3. He does have weakness in the right upper and lower extremities compared to the left upper and lower extremities which is not changed since his admission. He has no sensory deficit to light touch in the lower extremities bilaterally with different dermatomes tested. Pupils are equal and reactive to light. He has no facial droop whatsoever. No dysarthria. We will continue to monitor the patient for now and if symptoms persist or worsen will order a CT head.
[2017-10-26 17:12] LABS: Adenovirus F 40/41 PCR Not detected (Not detect); Astrovirus PCR Not detected (Not detect); C.difficile Toxin A/B by PCR Not detected (Not detect); Campylobacter by PCR Not detected (Not detect); Cryptosporidium by PCR Not detected (Not detect); Cyclospora cayetanensis PCR Not detected (Not detect); E. coli O157 by PCR Not detected (Not detect); Entamoeba histolytica PCR Not detected (Not detect); Enteroaggregative E.coli(EAEC) Not detected (Not detect); Enteropathogenic E.coli(EPEC) Not detected (Not detect); Enterotoxigenic E.coli (ETEC) Not detected (Not detect); Giardia lamblia PCR Not detected (Not detect); Norovirus GI/GII PCR Not detected (Not detect); Plesiomonas shigelloides PCR Not detected (Not detect); Rotavirus A PCR Not detected (Not detect); Salmonella PCR Not detected (Not detect); Sapovirus PCR Not detected (Not detect); Shig/EnteroinvasiveE coli EIEC Not detected (Not detect); Shigalike tox-prod E coli STEC Not detected (Not detect); Vibrio PCR Not detected (Not detect); Vibrio cholerae PCR Not detected (Not detect); Yersinia enterocolitica PCR Not detected (Not detect)
--- NOTE | 2017-10-26 22:34 | Electrocardiograph Report ---
[place] [id number] Test Date: 2017-10-25 Pat Name: Torey Guadalupe Department: 112 Room: 2A37 Gender: M Signal Wirer: : 1960 Requested By: Yuko Denney Order Number: [id number] Reading MD: Francesco Hadley DO Measurements Intervals [place] Rate: 84 P: 56 OR: 199 QRS: -33 QRSD: 95 T: 28 QT: 364 QTc: 405 Interpretive Statements SINUS RHYTHM LOW QRS VOLTAGE POSSIBLE ANTERIOR MYOCARDIAL INFARCTION, PROBABLY OLD INFERIOR MYOCARDIAL INFARCTION, PROBABLY OLD Electronically Signed On 10-26-2017 22:32:35 EDT by Francesco Hadley DO
[2017-10-27 03:13] LABS: Hematocrit 37.1 % (37.5-50.1); Hemoglobin 12.1 g/dL (12.9-16.9); Immature Granulocytes % 0.3 % (0-4); Lymphocytes % 33.8 %; Mean Corpuscular HGB Conc 32.6 g/dL (31.6-35.5); Mean Corpuscular Hemoglobin 26.5 pg (28.0-33.3); Mean Corpuscular Volume 81.4 fL (83.0-100.0); Mean Platelet Volume 10.3 fL (9.4-12.4); Monocytes % 11.9 %; Platelet Count 134 K/mcL (140-400); Red Blood Count 4.56 M/mcL (4.19-5.50); Red Cell Distribution Width 14.2 % (11.5-14.5); Segmented Neutrophils % 52.4 %
[2017-10-27 03:14] LABS: Basophils % 0.6 %; Lymphocytes # 1.1 K/mcL (0.6-4.6); Monocytes # 0.4 K/mcL (0.0-1.3); Neutrophils # 1.6 K/mcL (1.6-8.9)
[2017-10-27 03:31] LABS: BUN/Creatinine Ratio 9 (6-26); Blood Urea Nitrogen 8 mg/dL (6-20); Calcium 8.2 mg/dL (8.6-10.3); Carbon Dioxide 22 mEq/L (23-29); Chloride 104 mEq/L (98-107); Glucose 84 mg/dL (70-105); Magnesium 1.8 mg/dL (1.6-2.6); Osmolality,Calculated 272 (280-300); Potassium 3.9 mEq/L (3.5-5.1); Sodium 132 mEq/L (136-145); eGFR For African Americans > 60 (> 60); eGFR For Non-African Americans > 60 (> 60)
--- NOTE | 2017-10-27 03:57 | Event Note ---
Date of Encounter: 10/27/17 Time of Encounter: 03:56 Has chest pain. EKG ordered - unchanged from prior. trend trop. nitro trial
[2017-10-27] MEDS: Nitroglycerin 0.4 MG TAB.SUBL SL PRN ×2 (04:02→04:14)
[2017-10-27] MEDS: *HR* Heparin 5,000 UNIT/ML VIAL SQ SCH (04:03)
[2017-10-27] MEDS: Aspirin 81 MG TAB.CHEW PO SCH (08:35)
[2017-10-27] MEDS: Piperacillin/Tazobactam 3.375 GM in 0.9 % Sodium Chloride Mini Bag 100 ML IVPB SCH (08:37)
[2017-10-27] MEDS: Insulin LISPRO 300 UNITS/3 ML VIAL SQ SCH ×4 (08:37→21:37)
[2017-10-27] MEDS ORDERED: Magnesium Oxide 400 MG TABLET PO ONE (10:49)
--- NOTE | 2017-10-27 10:57 | Internal Med Progress Note ---
Date of Encounter: 10/27/17 Time of Encounter: 10:53 - Assessment and plan (1) UTI (urinary tract infection) Current Visit: Yes Status: Acute Assessment and plan: The patient continues to spike fevers. Cultures have been negative. Not exactly sure this is exactly was causing his fever. We will switch his antibiotics to Cipro for now. Repeat UA. Repeat blood cultures. Qualifiers: Urinary tract infection type: catheter-associated UTI Indwelling urinary catheter type: indwelling urethral catheter Encounter type: initial encounter Qualified Code(s): T83.511A - Infection and inflammatory reaction due to indwelling urethral catheter, initial encounter; N39.0 - Urinary tract infection , site not specified; N39.0 - Urinary tract infection, site not specified (2) Chest pain Current Visit: Yes Status: Acute Assessment and plan: resolved with nitro overnight. Trops neg x1. Will trend. No chest pain now. EKG with no changes. Qualifiers: Chest pain type: unspecified Qualified Code(s): R07.9 - Chest pain, unspecified (3) Liver mass Current Visit: Yes Status: Acute Assessment and plan: An MRI liver protocol done and showed complex cystic lesion near the gallbladder fossa which had features suggestive of internal blood products or proteinaceous material. The recommendation is to have repeat CT if symptoms persist. For now we will have him follow-up with the surgeons and repeat a CT needed outpatient. The patient has no symptoms in that. There was a 1.8 x 1.6 cm hypo-enhancing liver lesion adjacent to the gallbladder fossa on his CT abdomen and pelvis.. The patient recently had a cholecystectomy. (4) Colitis Current Visit: Yes Status: Acute Assessment and plan: Has watery diarrhea. Had 2 loose stools this morning. This may be the source of his fever. Change antibiotics to Cipro and Flagyl. GI panel is negative. Those findings of colitis on CT abdomen and pelvis. The patient has low-grade temperature of 100.5. (5) Paroxysmal atrial fibrillation Current Visit: Yes Status: Acute Assessment and plan: Currently rate controlled.. Unsure if he is on anticoagulation. Pharmacy to confirm. INR 1.1. (6) CAD (coronary artery disease), [place] coronary artery Current Visit: Yes Status: Acute Assessment and plan: Has 2 prior stents. Continue aspirin, Plavix, statin. Resume rest of home medications once they are confirmed. The patient may possibly be also on Imdur and lisinopril. Qualifiers: [place] vs. transplanted heart: [place] heart Associated angina: angina presence unspecified Qualified Code(s): I25.10 - Atherosclerotic heart disease of [place] coronary artery without angina pectoris (7) Diabetes mellitus Current Visit: Yes Status: Acute Assessment and plan: Continue insulin sliding scale. Continue Accu-Cheks. Qualifiers: Diabetes mellitus type: type 2 Diabetes mellitus retirement insulin use: without terminal system operator use Diabetes mellitus complication status: with unspecified complications Qualified Code(s): E11.8 - Type 2 diabetes mellitus with unspecified complications (8) History of cerebrovascular accident (CVA) with residual deficit Current Visit: Yes Status: Acute Assessment and plan: Continue antiplatelets and statin. (9) Urinary retention Current Visit: Yes Status: Acute Assessment and plan: He has had a chronic Yañez in since his stroke back in August 2016. He was going see Dr. Siddiqui in office over the last couple days but ended up hospitalized here. Failed voiding trials yesterday and a Yañez was placed back in. Urology is following. He will need follow-up with them voiding trials. (10) Thrombocytopenia Current Visit: Yes Status: Acute Assessment and plan: Unsure if this is secondary to medications been on antibiotics are due to the infection that we suspected he has. For now we will stop heparin subcutaneous. Change his antibiotics from Zosyn to Cipro and Flagyl. The patient SCDs. Check labs in the morning. (11) DVT prophylaxis Current Visit: Yes Status: Acute Assessment and plan: Stop heparin subcutaneous. Place and SCDs. Patient is showing thrombocytopenia. - Subjective Interval history: Patient was seen and examined. MAXIMUM TEMPERATURE of 100.5. The patient had an episode of chest pain overnight which resolved with 2 nitros. EKG and troponins were unremarkable. Seen by urology and recommended keeping the Yañez in for urinary retention. Still having loose stools. Had 21 this morning. Admitted with weakness, hypotension, and tachycardia. Being treated for urinary tract infection. Found to have colitis on a CT abdomen and pelvis. He has loose stools but stool panel was negative. Stools are watery. Afebrile. There was a report of a liver lesion as well for which an MRI liver protocol has been ordered and he underwent that yesterday. The patient has a chronic Yañez in since his stroke back in August of this year. The stroke has left him with residual right upper and lower extremity weakness. - Constitutional Vitals: Temp Pulse Resp BP Pulse Ox 99.9 F H 81 16 124/76 95 10/27/17 09:00 10/27/17 09:00 10/27/17 09:00 10/27/17 09:00 10/27/17 09:00 General appearance: Present: A&O X 3, no acute distress, answers questions appropriately Exam: GEN: NAD CVS: RRR. S1, S2, No m/r/g RESP: CTAB ABD: Soft, NT, ND, +BS EXT: No edema. 2+ DP. No rashes NEURO: Strength is about 4 out of 5 in the right upper right lower extremity compared to the left upper and lower extremities Internal Medicine: Result - Labs CBC & Chem 7: 10/27/17 02:45 10/27/17 02:45 Labs: Short CBC 10/27/17 Range/Units 02:45 WBC 3.1 L (4.3-11.1) K/mcL Hgb 12.1 L (12.9-16.9) g/dL Hct 37.1 L (37.5-50.1) % Plt Count 134 L (140-400) K/mcL Neutrophils # 1.6 (1.6-8.9) K/mcL BMP 10/27/17 02:45 Sodium 132 L Potassium 3.9 Chloride 104 Carbon Dioxide 22 L BUN 8 Creatinine 0.94 Glucose 84 Calcium 8.2 L Cardiac Enzymes 10/27/17 Range/Units 04:30 Troponin I < 0.03 (< 0.04) ng/mL - ABG Interpretation ABG results: PT/INR, D-dimer PT 12.1 Seconds (9.4-12.1) 10/25/17 04:43 Consult Discharge Plan - Plan Referrals: Nigel Nunez MD [Partnered Physician] - 11/06/17 8:00 am (Please follow up as schedule..) Juanita Valente CNP [Primary Care Provider] - 10/31/17 1:20 pm (Please follow up a schedule....)
[2017-10-27] MEDS ORDERED: levoFLOXacin 500 MG TABLET PO SCH (11:00)
[2017-10-27] MEDS: Ondansetron 4 MG/2 ML VIAL IVP PRN (12:56)
[2017-10-27 13:30] LABS: Bilirubin,Urine Negative (Negative); Blood,Urine Negative (Negative); Clarity,Urine Clear (Clear); Color,Urine Yellow (Yellow); Glucose,Urine (UA) Normal (Normal); Ketones,Urine 40 mg/dL (Negative); Leukocyte Esterase,Urine Negative (Negative); Nitrite,Urine Negative (Negative); Protein,Urine Trace mg/dL (Neg-Trace); Specific Gravity,Urine 1.027 (1.010-1.025); Urobilinogen,Urine Normal (Normal)
[2017-10-27 13:35] LABS: Bacteria,Urine None Seen per hpf (None-Few); Hyaline Casts,Urine None Seen per lpf (None-Few); RBC,Urine 0-3 per hpf (0-3); Squamous Epithelial Cell,Urine Few per lpf (None-Few); WBC,Urine 0-3 per hpf (0-3)
[2017-10-27] MEDS ORDERED: *HR* HYDROcodone/Acet 10/325 mg TABLET PO PRN (15:01)
[2017-10-27] MEDS: MetroNIDAZOLE 500 MG/100 ML 500 MG/100 ML BAG IVPB SCH ×2 (15:15→23:53)
--- NOTE | 2017-10-27 15:29 | Electrocardiograph Report ---
[place] [id number] Test Date: 2017-10-27 Pat Name: Torey Guadalupe Department: 112 Room: 2A37 Gender: M Brief Writer: : 1960 Requested By: Yuko Denney Order Number: [id number] Reading MD: Francesco Hadley DO Measurements Intervals [place] Rate: 74 P: 24 CO: 192 QRS: -40 QRSD: 94 T: 31 QT: 386 QTc: 414 Interpretive Statements SINUS RHYTHM LOW QRS VOLTAGE IN PRECORDIAL LEADS POSSIBLE ANTERIOR MYOCARDIAL INFARCTION, OF INDETERMINATE AGE INFERIOR MYOCARDIAL INFARCTION, PROBABLY OLD Electronically Signed On 10-27-2017 15:28:05 EDT by Francesco Hadley DO
[2017-10-27 16:07] LABS: Albumin 3.5 g/dL (3.5-5.7); Albumin/Globulin Ratio 1.4 (1.1-2.2); Bilirubin,Direct 0.3 mg/dL (0.0-0.2); Bilirubin,Indirect 0.5 mg/dL (0.0-1.2); Bilirubin,Total 0.8 mg/dL (0.3-1.0); Globulin 2.5 g/dL (2.4-3.5)
[2017-10-28 06:05] LABS: Basophils % 0.6 %; Eosinophils # 0.1 K/mcL (0.0-0.6); Eosinophils % 1.6 %; Hematocrit 39.7 % (37.5-50.1); Hemoglobin 13.1 g/dL (12.9-16.9); Immature Granulocytes % 0.3 % (0-4); Lymphocytes # 1.2 K/mcL (0.6-4.6); Lymphocytes % 37.3 %; Mean Corpuscular Hemoglobin 27.1 pg (28.0-33.3); Mean Platelet Volume 10.3 fL (9.4-12.4); Monocytes # 0.3 K/mcL (0.0-1.3); Monocytes % 8.4 %; Neutrophils # 1.6 K/mcL (1.6-8.9); Platelet Count 111 K/mcL (140-400); Red Blood Count 4.84 M/mcL (4.19-5.50); Red Cell Distribution Width 14.5 % (11.5-14.5); Segmented Neutrophils % 51.8 %
[2017-10-28] MEDS: Ondansetron 4 MG/2 ML VIAL IVP PRN (06:24)
[2017-10-28 06:28] LABS: BUN/Creatinine Ratio 10 (6-26); Blood Urea Nitrogen 8 mg/dL (6-20); Calcium 8.2 mg/dL (8.6-10.3); Carbon Dioxide 25 mEq/L (23-29); Chloride 101 mEq/L (98-107); Glucose 104 mg/dL (70-105); Magnesium 1.9 mg/dL (1.6-2.6); Osmolality,Calculated 273 (280-300); Potassium 3.9 mEq/L (3.5-5.1); Sodium 132 mEq/L (136-145); eGFR For African Americans > 60 (> 60); eGFR For Non-African Americans > 60 (> 60)
[2017-10-28 08:37] VITALS: BP 126/77
[2017-10-28] MEDS: MetroNIDAZOLE 500 MG/100 ML 500 MG/100 ML BAG IVPB SCH (08:44)
[2017-10-28] MEDS: Aspirin 81 MG TAB.CHEW PO SCH (08:44)
[2017-10-28] MEDS: Insulin LISPRO 300 UNITS/3 ML VIAL SQ SCH (08:45)
--- NOTE | 2017-10-28 10:39 | Discharge Summary ---
- NOTES TO OUTPATIENT PROVIDER Notes to Outpatient Provider: Please have repeat imaging done on the patient in a couple weeks on his abdomen. The patient recently had a laparoscopic cholecystectomy. A CT abdomen and pelvis done on this admission showed an indeterminate 1.8 x 1.6 cm hypoenhancing liver lesion adjacent to the gallbladder fossa and liver MRI was recommended. MRI of the abdomen showed complex cystic lesion near the gallbladder fossa with features. suggestive of internal blood products or proteinaceous material. Those were reported as incidental benign findings. An acute inflammatory process or abscess should be considered given recent cholecystectomy. A follow-up CT was recommended if there is concern. Date of Encounter: 10/28/17 Time of Encounter: 10:35 - Discharge Diagnosis (1) UTI (urinary tract infection) Priority: Primary Status: Acute Qualifiers: Urinary tract infection type: catheter-associated UTI Indwelling urinary catheter type: indwelling urethral catheter Encounter type: initial encounter Qualified Code(s): T83.511A - Infection and inflammatory reaction due to indwelling urethral catheter, initial encounter; N39.0 - Urinary tract infection , site not specified; N39.0 - Urinary tract infection, site not specified (2) Chest pain Priority: Secondary Status: Acute Qualifiers: Chest pain type: unspecified Qualified Code(s): R07.9 - Chest pain, unspecified (3) Liver mass Priority: Primary Status: Acute (4) Colitis Priority: Primary Status: Acute (5) Paroxysmal atrial fibrillation Priority: Secondary Status: Acute (6) CAD (coronary artery disease), [place] coronary artery Priority: Secondary Status: Acute Qualifiers: [place] vs. transplanted heart: [place] heart Associated angina: angina presence unspecified Qualified Code(s): I25.10 - Atherosclerotic heart disease of [place] coronary artery without angina pectoris (7) Diabetes mellitus Priority: Secondary Status: Acute Qualifiers: Diabetes mellitus type: type 2 Diabetes mellitus exercise specialist insulin use: without care home use Diabetes mellitus complication status: with unspecified complications Qualified Code(s): E11.8 - Type 2 diabetes mellitus with unspecified complications (8) History of cerebrovascular accident (CVA) with residual deficit Priority: Secondary Status: Acute (9) Urinary retention Priority: Primary Status: Acute (10) Thrombocytopenia Priority: Primary Status: Acute Hospital course: Mr. Guadalupe is a 57 year old male with PMH of CAD s/p 2 stents in January 2017, CVA in August 2017 with residual right arm/leg weakness, A. fib, DM, and HTN, presented to the ED with a 2 hour history of light-headedness and low BP ( systolic in 90's). He states that at home he was also tachycardic with HR in 130 's. He reports that his BP was normal. Associated symptoms include poor appetite , dyspnea, dry cough, nausea and dry heaves x1 day, mild, diffuse abdominal pain , and non-watery diarrhea. He was just discharged from [facility] the day prior to admission after being in the hospital for one week after a cholecystectomy. He denied fevers He had an indwelling urinary catheter in place since his stroke in August. He was admitted to the hospitalist service initially for possible UTI. Was put on IV Zosyn. Cultures were negative. Because of his diarrhea a CT abdomen and pelvis was done which showed signs of colitis. He had a MAXIMUM TEMPERATURE of 101.6 while hospitalized. Cultures remained negative including stool panel. His antibiotics were switched to Cipro and Flagyl to cover for GI etiology to his fever. He remained fever free for over [address]. His CT abdomen and pelvis showed Indeterminate 1.8 x 1.6 cm hypoenhancing liver lesion adjacent to the gallbladder fossa.. An MRI of the liver was recommended. MRI of the abdomen was done which showed Complex cystic lesion near the gallbladder fossa is noted with features suggestive of internal blood products or proteinaceous material. This may represent an incidental benign finding. An acute inflammatory process or abscess should also be considered given recent cholecystectomy. Follow-up with CT was recommended. We do recommend that he gets a follow-up CT in a few weeks time either by his primary care the surgeons to evaluate for that area. Regarding the patient's urinary retention we did voiding trials and the patient failed and a Yañez catheter was placed back in. We had urology see the patient and they recommended keeping the Yañez catheter and follow up in the outpatient setting for voiding trials. The patient was discharged eventually on 10/28 on a course of Cipro and Flagyl. - Time Spent with Patient Total time spent providing and/or coordinating discharge services: Greater than 30 minutes - Discharge Medications Prescriptions: Ciprofloxacin HCl [Cipro] 500 mg PO BID #10 tablet metroNIDAZOLE [Flagyl] 500 mg PO TID #15 tablet Home Medications: Atorvastatin Calcium [Lipitor] 80 mg PO HS 10/25/17 [History] Clopidogrel [Plavix] 75 mg PO DAILY 10/25/17 [History] Glimepiride [Amaryl] 8 mg PO DAILY 10/25/17 [History] Insulin Glargine,Hum.rec.anlog [Basaglar Kwikpen U-100] 10 unit SQ HS 10/25/17 [ History] Isosorbide MONOnitrate (24 HR) [Imdur] 30 mg PO DAILY 10/25/17 [History] Lisinopril [Zestril] 10 mg PO DAILY 10/25/17 [History] Metformin HCl [Glucophage] 1,000 mg PO BID 10/25/17 [History] Pantoprazole Sodium [Protonix] 40 mg PO DAILY 10/25/17 [History] Tamsulosin [Flomax] 0.4 mg PO DAILY 10/25/17 [History] Ciprofloxacin HCl [Cipro] 500 mg PO BID #10 tablet 10/28/17 [Rx] metroNIDAZOLE [Flagyl] 500 mg PO TID #15 tablet 10/28/17 [Rx] Allergies/Adverse Reactions: 3 Allergy/AdvReac Type Severity Reaction Status Date / Time naproxen [From Aleve] Allergy Swelling Verified 10/24/17 16:18 of Lip/Tongue/Throat Date of admission: 10/27/17 12:08 Primary care physician: AMI Patton - Constitutional Vitals: Temp Pulse Resp BP Pulse Ox 99.3 F 77 16 126/77 94 10/28/17 08:37 10/28/17 08:37 10/28/17 08:37 10/28/17 08:37 10/28/17 08:37 General appearance: Present: A&O X 3, no acute distress, answers questions appropriately Exam: GEN: NAD CVS: RRR. S1, S2, No m/r/g RESP: CTAB ABD: Soft, NT, ND, +BS EXT: No edema. 2+ DP. No rashes NEURO: Strength is about 4 out of 5 in the right upper right lower extremity compared to the left upper and lower extremities - Patient Status Disposition: Home, Self-Care Overall status at discharge: patient is progressing back to baseline - Discharge Instructions Instructions: Ciprofloxacin (By mouth), Metronidazole (By mouth), Urinary Tract Infection in Men (DC), Yañez Catheter Placement and Care (ANGEL) Follow Up With: Nigel Nunez MD [Partnered Physician] - 11/06/17 8:00 am (Please follow up as schedule..) Juanita Valente CNP [Primary Care Provider] - 10/31/17 1:20 pm (Please follow up a schedule....) - Diet and Activity Activity: increase activity as tolerated Diet: diabetic diet
== END 2017-10-28 11:10 | disposition home or self-care (01) | DRG 466 ==
LOC: 2ANU 16:12 → EMEROO 16:12 → 2ANU 10-25
PROVIDERS: ADMIT Internal Medicine; ATTEND Internal Medicine